=== PATIENT | male | born 1955 | race Caucasian/White ===

== ENCOUNTER → 2019-04-13 | Day surgery (SDC) | payer BC ==
[~2019-04-13] MED LIST: Lactated Ringers 1,000 ML IV SCH; Propofol 200 MG/20 ML SDV IV ONE
--- NOTE | 2019-04-13 12:02 | OR ---
DATE OF OPERATION: 04/13/2019 PREOPERATIVE DIAGNOSIS: SCREENING COLONOSCOPY. POSTOPERATIVE DIAGNOSIS: SCREENING COLONOSCOPY. SURGEON: Sang Oliva MD PROCEDURE: FULL-LENGTH COLONOSCOPY WITH FORCEPS POLYP REMOVAL X1. ANESTHESIA: MAC. COMPLICATIONS: None. SPECIMEN: A 4 mm sessile polyp, mid sigmoid colon. FINDINGS: 1. Full-length colonoscopy. 2. Marginal prep. 3. Sessile polyp, sigmoid colon, less than 0.5 cm. RECOMMENDATIONS: Followup colonoscopy in 5 years pending path reports. INDICATIONS: The patient was in for routine physical. He has never had a prior colonoscopy. Kvng Martínez sent him for screening exam. DESCRIPTION OF PROCEDURE: The patient was prepped and draped, placed in the left lateral decubitus position. A lubricated Olympus colonoscope was inserted and easily advanced to the cecum. Direct visualization of the ileocecal valve and appendiceal orifice was accomplished. The bowel prep was marginal. The patient had a lot of stool throughout most of the colon. Some areas were able to be suctioned, some not just due to some consistency present. Upon withdrawal, the cecum, ascending, and transverse colon appeared benign. No lesions in the descending area. Throughout the sigmoid colon, there were no diverticula, signs of colitis, vascular abnormalities, or bleeding sites. Around 50 cm, there was a small flat sessile polyp along the haustral fold that was removed in its entirety with 2 forceps biopsies. The rest of the sigmoid and rectosigmoid junction appeared benign. Rectal vault was filled with stool. We were able to irrigate a lot of this. No gross abnormalities were seen. Retroflexion was able to be accomplished and the perirectal area showed a lot hemorrhoid disease, but otherwise no lesions. Air was then suctioned, scope removed without complication. DOMIGNA/JEANNIE /[id number]
== END ==
LOC: CC.SDS 07:30
PROVIDERS: ATTEND Family Medicine
DX: Z12.11 Encounter for screening for malignant neoplasm of colon (principal); D12.5 Benign neoplasm of sigmoid colon; K64.9 Unspecified hemorrhoids; E78.00 Pure hypercholesterolemia, unspecified; I10 Essential (primary) hypertension; Z80.0 Family history of malignant neoplasm of digestive organs; Z87.891 Personal history of nicotine dependence; Z79.82 Long term (current) use of aspirin; Z79.899 Other long term (current) drug therapy
CPT/HCPCS: 45380; J2704; J7120

== ENCOUNTER 2024-04-06 10:24 | Day surgery (SDC) | payer MEDICARE, BC ==
[2024-04-06] MEDS: Lactated Ringers 1,000 ML IV SCH (10:58)
[2024-04-06] MEDS ORDERED: Propofol 200 MG/20 ML SDV ONE ×2 (12:15)
[2024-04-06] MEDS ORDERED: ePHEDrine 50 MG/ML SDV ONE (12:15)
[2024-04-06] MEDS ORDERED: Ketamine 200 MG/20 ML MDV ONE (12:15)
[2024-04-06] MEDS ORDERED: fentaNYL 50 MCG/ML SDV ONE (12:15)
== END 2024-04-06 13:44 | disposition home or self-care (01) ==
LOC: CC.SDS 10:24
PROVIDERS: ATTEND Family Medicine
DX: Z12.11 Encounter for screening for malignant neoplasm of colon (principal); K63.5 Polyp of colon; K62.1 Rectal polyp; Z86.0100 Personal history of colon polyps, unspecified; I10 Essential (primary) hypertension; E78.00 Pure hypercholesterolemia, unspecified; N40.0 Benign prostatic hyperplasia without lower urinary tract symptoms; Z87.891 Personal history of nicotine dependence; Z79.899 Other long term (current) drug therapy; Z80.0 Family history of malignant neoplasm of digestive organs
CPT/HCPCS: 00811; 88305; 88342; J2704; J3010; J3490; J7120